=== PATIENT | female | born 1945 | race Caucasian/White ===

== ENCOUNTER → 2016-09-20 | Day surgery (SDC) | payer MEDICARE ==
[~2016-09-20] MED LIST: ATOR20TA58 PO; CALC1TAB PO; CYCL1DRO EACHEYE; ESOM40CA PO; IV RINGERS,LACTATED 1000ML 1,000 ML IV SCH; LIDOCAINE 2% PF Vial for OR 5 ML VIAL. ONE; LOSA25TA4 PO; MAGN400C PO; MULT-208 PO; PARO20TA3 PO; PROAIR HFA8.5 GM INH; PROPOFOL 20 ML IV ONE
[2016-09-20 08:46] VITALS: BP 140/68
--- NOTE | 2016-09-21 14:31 | PATHOLOGY ---
PATHOLOGY REPORT * * * * * * * * FINAL DIAGNOSIS: Esophageal biopsy, distal esophagus: - Segments of hyperplastic squamous esophageal mucosa consistent with reflux esophagitis. COMMENT: Sections of the distal esophageal biopsy reveal segments of tangentially oriented, hyperplastic squamous esophageal mucosa. The findings are consistent with reflux esophagitis. There is no evidence of Lopez's change, dysplasia, or malignancy. (JPM:; d/t: 09/21/16) REPORT ELECTRONICALLY SIGNED BY: Jameson Del Castillo M.D. DATE/TIME: 09/21/2016 14:30 * * * * * * * * GROSS PATHOLOGY: Received in formalin labeled "Annabelle Peres and distal esophageal bx," are 4 segments of jones soft tissue measuring 1.5 x 0.3 x 0.2 cm in aggregate dimensions and ranging from 0.2 to 0.5 cm in maximum dimension. The specimen is submitted entirely in cassette A1. (TTL; 09/20/2016) INITIAL CPT CODE(S): A; 67009 Professional services performed [place] [facility] [address] Technical services performed by [facility] at [address] [place] [address] [address], [place] [address]. SPECIMEN(S) RECEIVED: A.Distal esophageal biopsy, r/o Lopez's CLINICAL HISTORY: Cough PATIENT: ANNABELLE PERES /AGE: 802/14/1945 (Age: 71) PATIENT #: [id number] ALT CASE #: SPECIMEN COLLECTION DATE: 09/20/2016 SPECIMEN RECEIVED DATE: 09/20/2016 [facility] - [address] [place] [address] - PHONE: [phone] * * * END OF REPORT * * *
== END | disposition home or self-care (01) ==
LOC: SURG 07:04
PROVIDERS: ATTEND Internal Medicine Gastroenterology
DX: K21.0 Gastro-esophageal reflux disease with esophagitis (principal); E78.00 Pure hypercholesterolemia, unspecified; I10 Essential (primary) hypertension; J45.909 Unspecified asthma, uncomplicated
CPT/HCPCS: 43239; 88305; J2704

== ENCOUNTER → 2019-10-03 | Day surgery (SDC) | payer MEDICARE ==
[~2019-10-03] MED LIST changes: +ALBU2.5V8 INH; +LIDOCAINE 2% PF 5 ML VIAL. ONE; -LIDOCAINE 2% PF Vial for OR 5 ML VIAL. ONE; -LOSA25TA4 PO; +LOSA25TA54 PO; +OLME1TAB25 PO; -PROAIR HFA8.5 GM INH; -PROPOFOL 20 ML IV ONE; +PROPOFOL 40 ML IV ONE
[2019-10-03 08:31] VITALS: BP 136/82
--- NOTE | 2019-10-06 16:06 | PATHOLOGY ---
[facility] Accession Number: [id number] . 01 Material submitted: . PART A: small bowel - SMALL BOWEL BIOPSY PART B: colon - RANDOM COLON BIOPSY . 01 Clinical history: . Weight loss, diarrhea . 02 Diagnosis: A. Duodenal and small intestine mucosa, small bowel biopsies: - No significant pathologic abnormalities. . B. Colonic mucosa, random colon biopsies: - Suggestive of lymphocytic (microscopic) colitis. . (JPM:mml; 10/06/2019) [facility] 10/06/2019 1548 Local . 02 Comment: Sections of the small bowel biopsy reveal segments of duodenal and small intestine mucosa. Where best oriented, the mucosal villi show no sprue-like changes or significant inflammatory changes. . Sections of the random colon biopsy reveal multiple segments of colonic mucosa. There is a mild chronic active colitis without crypt architectural distortion or collagen deposition. Intraepithelial lymphocytes are increased. These changes are consistent with lymphocytic (microscopic) colitis. However, the diagnosis requires clinicopathologic correlation. . (JPM:mml; 10/06/2019) . 02 Electronically signed: . Jameson Del Castillo MD, Pathologist NPI- [id number] . 01 Gross description: . A. The specimen is received in formalin, labeled "Annabelle Peres, small bowel biopsy". Received are eight segments of pale jones soft tissue ranging in size from 0.2 to 0.4 cm in maximum dimensions. The specimen is submitted entirely in cassette A1. . B. The specimen is received in formalin, labeled "Annabelle Peres, random colon biopsy". Received are multiple (greater than 10) segments of pale jones soft tissue ranging in size from 0.2 to 0.9 cm in maximum dimensions. The specimen is submitted entirely in cassette B1. (CAA; 10/03/2019) QAC/QAC 10/03/2019 1704 Local . 02 Pathologist provided ICD-10: R63.4, R19.7 . 02 CPT . 953126, 172269 Specimen Comment: A courtesy copy of this report has been sent to [phone], [phone] Specimen Comment: [id number] Specimen Comment: Report sent to / DR BLANCAS Performed at: 01 [facility] [address], [place] [id number] MD Chris Ibrahim MD Phone: [phone] Performed at: 02 [facility] [address], [place] [id number] MD Jameson Del Castillo MD Phone: [phone]
== END ==
LOC: ENDOS 06:35
PROVIDERS: ATTEND Internal Medicine Gastroenterology
DX: K52.9 Noninfective gastroenteritis and colitis, unspecified (principal); K57.30 Diverticulosis of large intestine without perforation or abscess without bleeding; K64.0 First degree hemorrhoids; K21.9 Gastro-esophageal reflux disease without esophagitis; F32.9 Major depressive disorder, single episode, unspecified; J45.909 Unspecified asthma, uncomplicated; I10 Essential (primary) hypertension; E78.00 Pure hypercholesterolemia, unspecified; K44.9 Diaphragmatic hernia without obstruction or gangrene; F15.90 Other stimulant use, unspecified, uncomplicated; Z88.6 Allergy status to analgesic agent; Z88.5 Allergy status to narcotic agent; Z88.8 Allergy status to other drugs, medicaments and biological substances; Z86.010 Personal history of colon polyps; Z72.89 Other problems related to lifestyle
CPT/HCPCS: 43239; 45380; 88305; J2704; J3490; 45378